=== PATIENT | female | born 1965 | race African-American/Black ===

== ENCOUNTER 2021-11-21 12:48 | Emergency (ER) | payer OTHER ==
[2021-11-21 15:37] LABS: BASOPHIL 0.5 % (0-2); EOSINOPHIL 3.3 % (0-5); HCT 39.5 % (37.0-47.0); HGB 11.7 g/dl (12.5-16.0); LYMPHOCYTE 25.9 % (15-48); MCH 21.6 pg (25.0-31.0); MCHC 29.6 g/dL (32.0-36.0); MCV 72.9 fL (78.0-100.0); MONOCYTE 9.5 % (0-12); MPV 10.9 fL (6.0-9.5); NEUTROPHIL 60.4 % (41-80); NRBC 0; PLT 224 K/uL (150-400); RBC 5.42 M/uL (4.20-5.40); RDW 20.3 % (11.5-14.0); WBC 11.1 K/uL (4.0-10.5)
[2021-11-21 15:49] LABS: INR 1.11 (0.9-1.2); PROTHROMBIN TIME 13.7 SECONDS (11.8-13.4); PTT 34.7 SECONDS (24.4-34.7)
[2021-11-21 15:57] LABS: ALBUMIN 3.1 g/dL (3.4-5.0); BILIRUBIN - TOTAL 0.4 mg/dL (0.2-1.0); BUN/CREAT RATIO (CALC) 12.7 RATIO; CREATININE 0.71 mg/dL (0.51-0.95); GLOBULIN (CALCULATION) 5.5 g/dL; POTASSIUM 3.5 mmol/L (3.5-5.1); TOTAL PROTEIN 8.6 g/dL (6.4-8.2)
[2021-11-21] MEDS ORDERED: BACLOFEN 10MG T10 MG PO (19:10)
== END 2021-11-21 19:28 | disposition home or self-care (01) ==
LOC: FER 12:48
PROVIDERS: Emergency Medicine
DX: R07.89 Other chest pain (principal); M94.0 Chondrocostal junction syndrome [Tietze]; I10 Essential (primary) hypertension; E11.9 Type 2 diabetes mellitus without complications; Z88.5 Allergy status to narcotic agent; Z28.310 Unvaccinated for COVID-19
CPT/HCPCS: 36415; 71045; 80053; 84484; 85025; 85610; 85730; 93005